=== PATIENT | male | born 1950 | race Caucasian/White ===

== ENCOUNTER 2023-07-31 17:37 | Outpatient (CLI) | payer MEDICARE, OTHER ==
--- NOTE | 2023-08-01 11:05 | XRAY Report ---
PROCEDURE: TMJ LT INDICATIONS: TMJ TENDERNESS TECHNIQUE: 4 view(s) of the bilateral TMJ acquired. COMPARISON: None FINDINGS: Bones: No fractures or dislocations. No suspicious bony lesions. No dislocation. No significant ar thritic changes at the TMJ joint. Soft tissues: No suspicious soft tissue calcifications. IMPRESSION: No acute abnormality. If concern persists for potential articular disc displacement, MRI is recommend ed. Reviewed by: Abiola Haines MD on 08/01/2023 11:04 AM PDT Approved by: Abiola Haines MD on 08/01/2023 11:04 AM PDT Station ID: [id number]
== END 2023-07-31 17:38 | disposition home or self-care (01) ==
LOC: DI 17:37
PROVIDERS: ATTEND Family Medicine
DX: M26.69 Other specified disorders of temporomandibular joint (principal); S00.83XA Contusion of other part of head, initial encounter